=== PATIENT | female | born 2005 | race Hispanic/Latino ===

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

== ENCOUNTER 2023-05-02 17:25 | Emergency (ER) | payer OTHER ==
[2023-05-02] MEDS ORDERED: NALOXONE 0.4 MG/ML VIAL ONE (17:44)
--- NOTE | 2023-05-02 17:55 | EDPHYS ---
Physician Documentation [facility] Name: Hellen Joyner Age: 17 yrs Sex: Female : 2005 Arrival Date: 05/02/2023 Time: 17:25 Bed 4 Private MD: ED Physician Chad Henry HPI: 05/02 17:51 This 17 yrs old Female presents to ER via Wheelchair with complaints of kb Overdose. 17:51 The patient presents to the emergency department after a known overdose, a result of kb recreational substance abuse. Context: Method: the patient has a confirmed or suspected inhalation, percocet, Time: today, Extent: the OD/poisoning occurred at at home, and was witnessed no one. Associated signs and symptoms: Pertinent positives: decreased level of consciousness, Pertinent negatives: depression. Severity of symptoms: At their worst the symptoms were moderate in the emergency department the symptoms are unchanged. The patient has not experienced similar symptoms in the past. The patient has not recently seen a physician. Family reports pt was found to be unconscious at home so they carried her to the car and brought her in. Pt now responsive to voice and answers questions appropriately. Pt states she crushes and inhales percocet recreationally on a daily basis. States she took one pill today. . Historical: - Allergies: 17:33 No Known Allergies; ss - Home Meds: 17:33 None [Active]; ss - PMHx: 17:33 None; ss - PSHx: 17:33 None; ss - Immunization history:: Adult Immunizations unknown. - Social history:: Smoking status: unknown Patient uses street drugs. ROS: 17:40 Constitutional: Negative for fever, chills, and weight loss. kb 17:40 Neuro: Positive for altered mental status. 17:40 All other systems are negative. Exam: 17:40 Constitutional: This is a well developed, well nourished patient who is awake, alert, kb and in no acute distress. Head/Face: Normocephalic, atraumatic. ENT: Moist Mucous membranes Cardiovascular: Regular rate and rhythm with a normal S1 and S2. No gallops, murmurs, or rubs. No pulse deficits. Respiratory: Respirations even and unlabored. No increased work of breathing. Talking in full sentences Abdomen/GI: Soft, non-tender. No distention Skin: Warm, dry with normal turgor. Normal color. MS/ Extremity: Pulses equal, no cyanosis. Neurovascular intact. Full, normal range of motion. 17:40 Neuro: Orientation: to person, place, time \T\ situation. Mentation: responsive to voice able to follow commands, Motor: able to transfer from wheelchair to stretcher, Pt drowsy, responsive to voice and answers questions appropriately. Vital Signs: 17:31 BP 101 / 59; Pulse 73; Resp 10; Temp 97.6(TE); Pulse Ox 98% on R/A; Pain 0/10; ss 17:49 BP 97 / 62; Pulse 76; Resp 14; Pulse Ox 100% ; jl7 17:31 Pain Scale: Adult ss MDM: 17:31 Patient medically screened. kb 17:48 Differential diagnosis: Ingestion/exposure to percocet over medication. Data reviewed: kb vital signs, nurses notes. Historians other than the Patient: Family Member: aunt. ED course: Pt awake, alert and oriented after narcan, no longer drowsy. Pt educated on need for 6 hour observation. Pt states she is not staying here, states she is fine and doesn't like hospitals so she wants to leave. Pt and family educated on risks. Educated on half life of recreational drugs vs narcan and possibility of resp depression and . Pt still wants to go home. Pt ambulated out of ED via steady gait. . 0812 17:34 Order name: Acetaminophen; Complete Time: 18:21 kb 0812 17:34 Order name: Basic Metabolic Panel; Complete Time: 18:21 kb 12 17:34 Order name: CBC with Diff; Complete Time: 18:04 kb 12 17:34 Order name: ETOH Level; Complete Time: 18:11 kb 12 17:34 Order name: Hepatic Function; Complete Time: 18:21 kb 12 17:34 Order name: PT-INR; Complete Time: 17:59 kb 12 17:34 Order name: Ptt, Activated; Complete Time: 17:59 kb 12 17:34 Order name: Salicylate; Complete Time: 18:16 kb 0812 17:34 Order name: EKG; Complete Time: 17:34 kb 05/02 17:34 Order name: IV Saline Lock; Complete Time: 17:38 kb 0812 17:34 Order name: Labs collected and sent; Complete Time: 17:38 kb Administered Medications: 17:38 Drug: Naloxone IVP 0.4 mg Route: IVP; Site: right antecubital; bp 17:50 Follow up: Response: No adverse reaction; Marked relief of symptoms jl7 18:26 Not Given (Patient Refused): NS 0.9% IV 1000 ml IV at 1000 ml once jl7 Disposition: 05/03 07:53 Co-signature as Attending Physician, Chad Henry MD I agree with the assessment and kdr plan of care. Disposition Summary: 05/02/23 17:55 Discharge Ordered Location: Home kb Condition: Stable kb Diagnosis - Poisoning by other drugs, medicaments and biological substances, accidental kb (unintentional) Followup: kb - With: Emergency Department - When: As needed - Reason: Worsening of condition Followup: kb - With: Private Physician - When: 2 - 3 days - Reason: Recheck today's complaints, Continuance of care, Re-evaluation by your physician Forms: - Medication Reconciliation Form kb - Thank You Letter kb - Antibiotic Education kb - Prescription Opioid Use kb - Patient Portal Instructions kb - Leadership Thank You Letter kb Signatures: Dispatcher [employer] EDMS Nikki Elliott, INSURANCE BILLER-C INSURANCE BILLER-Vitalyb Chad Henry MD MD [facility] Nilda Ugalde, RN RN ss Ferny Pino, RN RN jl7 Hector Roque, RN RN bp Corrections: (The following items were deleted from the chart) 05/02 17:48 17:40 Neuro: Orientation: to person, place, time \T\ situation. Mentation: responsive to kb voice able to follow commands, Pt drowsy, responsive to voice and answers questions appropriately, kb
--- NOTE | 2023-05-02 17:55 | ER ---
Nurse's Notes [facility] Name: Hellen Joyner Age: 17 yrs Sex: Female : 2005 Arrival Date: 05/02/2023 Time: 17:25 Bed 4 Private MD: Diagnosis: Poisoning by other drugs, medicaments and biological substances, accidental (unintentional) Presentation: 05/02 17:31 Chief complaint: Grandmother states that patient has been using unknown recreational ss drugs for sometime and today she has been lethargic and minimally responsive for most of the day. Pt admits to taking 1 dose of oral Percocet. Coronavirus screen: Client denies travel out of the [place] in the last 14 days. Ebola Screen: Patient denies exposure to infectious person. Patient denies travel to an Ebola-affected area in the 21 days before illness onset. Initial Sepsis Screen: Does the patient meet any 2 criteria? No. Patient's initial sepsis screen is negative. Does the patient have a suspected source of infection? No. Patient's initial sepsis screen is negative. Risk Assessment: Do you want to hurt yourself or someone else? Patient reports no desire to harm self or others. Onset of symptoms was May 02, 2023. 17:31 Method Of Arrival: Wheelchair ss 17:31 Acuity: JANIE 2 ss Historical: - Allergies: 17:33 No Known Allergies; ss - Home Meds: 17:33 None [Active]; ss - PMHx: 17:33 None; ss - PSHx: 17:33 None; ss - Immunization history:: Adult Immunizations unknown. - Social history:: Smoking status: unknown Patient uses street drugs. Assessment: 17:34 Reassessment: Pt admits to taking the drugs recreationally. Denies SI/HI. ss 17:40 Reassessment: Pt laying in bed, lethargic with mouth open, skin appears pale, jl7 respirations shallow, even and unlabored, RR 10. 17:50 Reassessment: 0.4mg Narcan IVP administered as ordered. Pt now A\\T\\Ox4, request IV to be jl7 removed and she wants to leave. Pt's friends at bedside telling pt to stay and get help. Pt denies and request to leave. IV removed, pt ambulated out of ER with steady gate. Overdose: 18:29 [place] Suicide Severity Screening: "In the past month, have you wished you were jl7 or wished you could go to sleep and not wake up?" Patient responds "no." "In the past month, have you actually had any thoughts of killing yourself?" Patient responds "no." "In your lifetime, have you ever done anything, started to do anything, or prepared to do anything to end your life?" Patient responds "no.". Vital Signs: 17:31 BP 101 / 59; Pulse 73; Resp 10; Temp 97.6(TE); Pulse Ox 98% on R/A; Pain 0/10; ss 17:49 BP 97 / 62; Pulse 76; Resp 14; Pulse Ox 100% ; jl7 17:31 Pain Scale: Adult ss ED Course: 17:31 Patient arrived in ED. ss 17:31 Hector Roque, JOSE is Primary Nurse. bp 17:31 Nikki Elliott FNP-C is PHCP. kb 17:31 Chad Henry MD is Attending Physician. kb 17:33 Triage completed. ss 17:33 Arm band placed on right wrist. ss 17:39 Inserted saline lock: 20 gauge in right antecubital area, using aseptic technique. bp Blood collected. 17:50 Patient has correct armband on for positive identification. Provided Education on: jl7 Educated pt on dangers of continued drug use, informed of possibility of accidental OD and , pt verbalized understanding. 17:50 No provider procedures requiring assistance completed. IV discontinued, intact, jl7 bleeding controlled, No redness/swelling at site. Pressure dressing applied. Administered Medications: 17:38 Drug: Naloxone IVP 0.4 mg Route: IVP; Site: right antecubital; bp 17:50 Follow up: Response: No adverse reaction; Marked relief of symptoms jl7 18:26 Not Given (Patient Refused): NS 0.9% IV 1000 ml IV at 1000 ml once jl7 Medication: 17:49 VIS not applicable for this client. jl7 Outcome: 17:55 Discharge ordered by . kb 17:55 Discharged to home ambulatory, with friend. jl7 17:55 Condition: stable 17:55 Discharge instructions given to patient, friend, Instructed on follow up and referral plans. safety practices. 18:30 Patient left the ED. jl7 Signatures: Nikki Elliott, SALESPERSON RECREATIONAL [employer]HICLES-C SALESPERSON RECREATIONAL [employer]HICLES-Nilda Mcmillan, RN RN ss Ferny Pino, RN RN jl7 Hector Roque, RN RN bp
[2023-05-02 17:58] LABS: Protime INR 1.02
[2023-05-02 18:01] LABS: Absolute Lymphocytes (CBC) 1.7 K/uL (0.7-4.9); Hematocrit 34.5 % (36.0-45.0); Platelets 243 thou/uL (152-406); RBC Red Blood Cell Count 4.16 M/uL (3.86-4.86)
[2023-05-02 18:16] LABS: ALT/SGPT 15 U/L (13-56); AST/SGOT 13 U/L (15-37); Alkaline Phosphatase 88 U/L (45-117); BUN Blood Urea Nitrogen 7 mg/dL (7-18); Bicarbonate 29 mEq/L (21-32); Bilirubin Direct < 0.1 mg/dL (0-0.2); Bilirubin Indirect, Calculated ND mg/dL (0.2-0.8); Bilirubin Total 0.2 mg/dL (0.2-1.0); Glomerular Filtration Rate 129 ml/min (=/>90); Glucose Level 95 mg/dL (74-106); Potassium 3.8 mEq/L (3.5-5.1); Protein, Total 7.6 g/dL (6.4-8.2); Sodium Level 137 mEq/L (136-145)
[2023-05-02 19:09] VITALS: TEMP 97.6
[2023-05-02 19:10] VITALS: BP 97/62; O2SAT 100
== END 2023-05-02 18:30 | disposition home or self-care (01) ==
LOC: ER 17:25
DX: T40.2X1A Poisoning by other opioids, accidental (unintentional), initial encounter (principal)
CPT/HCPCS: 85025; 80048; 36415; 85610; 80076; 85730; 96374; 99284; 80143; 80179; 82077; J2310

== ENCOUNTER 2023-05-16 09:02 | Emergency (ER) | payer OTHER ==
[2023-05-16 09:23] LABS: Absolute Lymphocytes (CBC) 2.2 K/uL (0.7-4.9); Hematocrit 34.5 % (36.0-45.0); Lymphocytes % 23.2 % (15.3-44.8); MCV 80.9 fL (80-100); MPV 8.6 fL (7.6-11.3); Platelets 366 thou/uL (152-406); RBC Red Blood Cell Count 4.27 M/uL (3.86-4.86)
[2023-05-16] MEDS ORDERED: PROMETHAZINE INJ 25 MG/ML AMP ONE (09:23)
[2023-05-16] MEDS ORDERED: KETOROLAC 30 MG/ML INJ ONE (09:24)
[2023-05-16] MEDS ORDERED: NA CHLORIDE 0.9% 1,000 ML ONE ×2 (09:24→11:45)
[2023-05-16 09:34] LABS: Specific Gravity > 1.030 (1.005-1.030)
[2023-05-16] MEDS ORDERED: FAMOTIDINE 20 MG/2 ML VIAL IV ONE (09:36)
[2023-05-16 09:44] LABS: Specific Gravity > 1.030 (1.005-1.030); Urine Bacteria None Seen /HPF (<20); Urine Bilirubin NEGATIVE (Negative); Urine Blood Negative (Negative); Urine Clarity Extremely Turbid (Clear); Urine Color Yellow (Yellow); Urine Glucose NEGATIVE (Negative); Urine Mucus 1+ /HPF (None Seen); Urine Protein 1+ (Negative); Urine RBC <5 /HPF (None Seen); Urine Urobilinogen Normal (Normal); Urine pH 6.5 (5.0-7.0)
[2023-05-16 10:01] LABS: Barbiturates NEGATIVE (NEGATIVE); Benzodiazepines POSITIVE (NEGATIVE); Cocaine NEGATIVE (NEGATIVE); METHAMPHETAM NEGATIVE (NEGATIVE); Methadone NEGATIVE (NEGATIVE); Opiates NEGATIVE (NEGATIVE); Phencyclidine NEGATIVE (NEGATIVE); THC Cannibis POSITIVE (NEGATIVE)
[2023-05-16 10:30] LABS: Albumin 4.5 g/dL (3.4-5.0); Bilirubin Total 0.4 mg/dL (0.2-1.0); Potassium 2.9 mEq/L (3.5-5.1); Protein, Total 8.3 g/dL (6.4-8.2)
--- NOTE | 2023-05-16 10:40 | RAD REPORT ---
EXAM DESCRIPTION: RAD - Chest Single View - 05/16/2023 10:27 am CLINICAL HISTORY: CHEST PAIN COMPARISON: Chest Single View dated 11/11/2022; Chest Single View dated 06/30/2021; ABDOMEN 1 VIEW KU B dated 10/01/2015; CHEST PA AND LAT 2 VIEW dated 12/09/2014 FINDINGS: Lines: None. Lungs: No evidence of edema or pneumonia. Pleural: No significant pleural effusions or pneumothorax. Cardiac: The heart size is within normal limits. Mediastinum: Within normal limits. Bones: No acute fractures. Other: None IMPRESSION: No acute cardiopulmonary disease.
[2023-05-16] MEDS ORDERED: ONDANSETRON 4 MG/2 ML VIAL ONE (11:44)
[2023-05-16] MEDS ORDERED: NS KCL 20MEQ 1,000 ML IV ONE (11:45)
[2023-05-16] MEDS ORDERED: KCL 20 MEQ/100 mL IVPB 0 ML IV ONE (11:45)
[2023-05-16] MEDS ORDERED: POTASSIUM 25 MEQ EFFERV TAB ONE (13:42)
--- NOTE | 2023-05-16 14:56 | ER ---
Nurse's Notes [facility] Name: Hellen Joyner Age: 17 yrs Sex: Female : 2005 Arrival Date: 05/16/2023 Time: 09:02 Bed 7 Private MD: Diagnosis: Other psychoactive substance abuse;Nausea with vomiting, unspecified;Chest pain, unspecified;Abdominal pain, unspecified;Hypokalemia Presentation: 05/16 09:04 Chief complaint: EMS states: Chest pain since this morning, N/V X 5 days, Fentanyl ld1 abuse. Coronavirus screen: At this time, the client does not indicate any symptoms associated with coronavirus-19. Ebola Screen: No symptoms or risks identified at this time. Initial Sepsis Screen: Does the patient meet any 2 criteria? No. Patient's initial sepsis screen is negative. Does the patient have a suspected source of infection? No. Patient's initial sepsis screen is negative. Risk Assessment: Do you want to hurt yourself or someone else? Patient reports no desire to harm self or others. Onset of symptoms was May 16, 2023. 09:04 Method Of Arrival: EMS: [facility] ld1 09:04 Acuity: JANIE 3 ld1 Triage Assessment: 09:05 General: Appears in no apparent distress. comfortable, Behavior is calm, cooperative, ld1 appropriate for age. Pain: Complains of pain in chest Pain does not radiate. Pain currently is 6 out of 10 on a pain scale. Quality of pain is described as throbbing, Pain began 2 hours ago. Is intermittent. EENT: No signs and/or symptoms were reported regarding the EENT system. Neuro: Level of Consciousness is awake, alert, obeys commands, Oriented to person, place, time, situation. Cardiovascular: Capillary refill < 3 seconds Patient's skin is warm and dry. Rhythm is sinus rhythm. Respiratory: Airway is patent Respiratory effort is even, unlabored. GI: Abdomen is flat, non-distended. : No signs and/or symptoms were reported regarding the genitourinary system. Derm: No signs and/or symptoms reported regarding the dermatologic system. Musculoskeletal: No signs and/or symptoms reported regarding the musculoskeletal system. Historical: - Allergies: 09:05 No Known Allergies; ld1 - Home Meds: 09:05 None [Active]; ld1 - PMHx: 09:05 None; ld1 - PSHx: 09:05 None; ld1 - Immunization history:: Adult Immunizations up to date. - Social history:: Smoking status: Patient denies any tobacco usage or history of. Patient uses street drugs, fentanyl. Screenin:[address] [facility] ED Fall Risk Assessment (Adult) History of falling in the last 3 months, ld1 including since admission No falls in past 3 months (0 pts). Abuse screen: Denies threats or abuse. Denies injuries from another. Nutritional screening: No deficits noted. Tuberculosis screening: No symptoms or risk factors identified. Assessment: 09:06 Reassessment: See triage assessment. ld1 10:27 Reassessment: Patient appears in no apparent distress at this time. Patient and/or hb family updated on plan of care and expected duration. Pain level reassessed. Patient is alert, oriented x 3, equal unlabored respirations, skin warm/dry/pink. 11:30 Reassessment: Patient appears in no apparent distress at this time. Patient and/or hb family updated on plan of care and expected duration. Pain level reassessed. Patient is alert, oriented x 3, equal unlabored respirations, skin warm/dry/pink. 12:30 Reassessment: Patient appears in no apparent distress at this time. Patient and/or hb family updated on plan of care and expected duration. Pain level reassessed. Patient is alert, oriented x 3, equal unlabored respirations, skin warm/dry/pink. Reassessment: Patient appears in no apparent distress at this time. Patient and/or family updated on plan of care and expected duration. Pain level reassessed. Patient is alert, oriented x 3, equal unlabored respirations, skin warm/dry/pink. 14:00 Reassessment: Patient appears in no apparent distress at this time. Patient and/or hb family updated on plan of care and expected duration. Pain level reassessed. Patient is alert, oriented x 3, equal unlabored respirations, skin warm/dry/pink. Overdose: 15:19 [place] Suicide Severity Screening: "In the past month, have you wished you were ld1 or wished you could go to sleep and not wake up?" Patient responds "no." "In the past month, have you actually had any thoughts of killing yourself?" Patient responds "no." "In your lifetime, have you ever done anything, started to do anything, or prepared to do anything to end your life?" Patient responds "no.". Vital Signs: 09:04 BP 147 / 81; Pulse 56; Resp 18; Temp 98.5(O); Pulse Ox 100% on R/A; Weight 70.31 kg; ld1 Height 5 ft. 4 in. ; Pain 6/10; 11:31 BP 138 / 80; Pulse 64; Resp 15; Pulse Ox 99% on R/A; hb 12:21 BP 137 / 86; Pulse 63; Resp 18; Pulse Ox 100% on R/A; ld1 14:00 BP 128 / 82; Pulse 66; Resp 16; Pulse Ox 99% on R/A; hb 09:04 Body Mass Index 26.61 (70.31 kg, 162.56 cm) ld1 09:04 Pain Scale: Adult ld1 ED Course: 09:04 Patient arrived in ED. ld1 09:05 Triage completed. ld1 09:05 Arm band placed on right wrist. ld1 09:06 Leo Jacques MD is Attending Physician. cp 09:06 Leo Jimenez PA is PHCP. cp 09:06 Patient has correct armband on for positive identification. Placed in gown. Bed in low ld1 position. Call light in reach. Side rails up X2. aquatics instructor on. Pulse ox on. NIBP on. Door closed. Noise minimized. Warm blanket given. 09:06 No provider procedures requiring assistance completed. ld1 09:09 Yamilet Calle, RN is Primary Nurse. ld1 09:20 CBC with Diff Sent. mm9 09:20 CMP Sent. mm9 09:20 Lipase Sent. mm9 09:20 Test, Urine Sent. mm9 09:20 Urinalysis w/ reflexes Sent. mm9 09:21 Initial lab(s) drawn, by me, sent to lab. Urine collected: clean catch specimen, clear. mm9 Inserted saline lock: 20 gauge in right antecubital area, using aseptic technique. 09:25 CBC with Diff Sent. ll1 09:25 CMP Sent. ll1 09:25 Lipase Sent. ll1 09:36 COVID-19 SARS RT PCR Sent. hb 10:29 XRAY Chest (1 view) In Process Unspecified. EDMS 15:19 IV discontinued, intact, bleeding controlled, No redness/swelling at site. ld1 Administered Medications: 09:16 Drug: NS 0.9% IV 1000 ml Route: IV; Rate: 1 bolus; Site: right antecubital; hb 11:30 Follow up: Response: No adverse reaction; IV Status: Completed infusion; IV Intake: hb 1000ml 09:16 Drug: Promethazine IVP 25 mg Route: IVP; Site: right antecubital; hb 11:30 Follow up: Response: No adverse reaction hb 09:16 Drug: Ketorolac IVP 15 mg Route: IVP; Site: right antecubital; hb 11:30 Follow up: Response: No adverse reaction hb 09:30 Drug: Famotidine IVP 20 mg Route: IVP; Site: right antecubital; hb 11:30 Follow up: Response: No adverse reaction hb 11:39 Not Given (Physician Discretion): Potassium PO Effervescent Tablet 50 mEq PO once; hb dissolve in 4 ounces of water or juice 11:39 Drug: Potassium Chloride IV 20 mEq Route: IV; Rate: calculated rate; Site: right hb antecubital; 11:39 Drug: NS 0.9% IV 1000 ml Route: IV; Rate: 500 ml/hr; Site: right antecubital; hb 11:40 Drug: Ondansetron IVP 4 mg Route: IVP; Site: right antecubital; hb 13:34 Drug: Potassium PO Effervescent Tablet 50 mEq Route: PO; ld1 Medication: 09:06 VIS not applicable for this client. ld1 Intake: 11:30 IV: 1000ml; Total: 1000ml. hb Outcome: 14:55 Discharge ordered by . madelin 15:18 Discharged to home ambulatory. ld1 15:18 Condition: stable 15:18 Discharge instructions given to patient, Instructed on discharge instructions, follow up and referral plans. Demonstrated understanding of instructions, follow-up care. 15:19 Patient left the ED. ld1 Signatures: Dispatcher [employer] EDMS Leo Jimenez PA PA cp Baxter, Heather RN Kevin Cordoba RN RN ll1 Yamilet Calle RN RN ld1 Magali Tracey mm9 Corrections: (The following items were deleted from the chart) 09:25 09:20 Troponin High Sensitivity+C.LAB.BRZ drawn and sent. 9 EDMS : 09:23 URINE DRUG SCREEN+UC.LAB.BRZ drawn and sent. 9 EDMS : 09:23 Troponin High Sensitivity+C.LAB.BRZ drawn and sent. 9 EDMS 09:36 09:24 TEST, SERUM+SC.LAB.BRZ drawn and sent. 1 EDMS 11:32 11:30 Potassium PO Effervescent Tablet 50 mEq PO hb ll1
--- NOTE | 2023-05-16 14:56 | EDPHYS ---
[facility] Name: Hellen Joyner Age: 17 yrs Sex: Female : 2005 Arrival Date: 05/16/2023 Time: 09:02 Bed 7 Private MD: ED Physician Leo Jacques HPI: 05/16 09:10 This 17 yrs old Female presents to ER via EMS with complaints of Drug Abuse, cp Chest Pain, Nausea/Vomiting. 09:10 The patient presents to the emergency department with nausea, that is moderate, cp vomiting, that is intermittent. Onset: The symptoms/episode began/occurred 5 day(s) ago. Possible causes: reports taking "street Fentanyl". 09:10 Associated signs and symptoms: Pertinent positives: chest pain that started today, cp Pertinent negatives: constipation, diarrhea, fever, GI bleeding. Historical: - Allergies: 09:05 No Known Allergies; ld1 - Home Meds: 09:05 None [Active]; ld1 - PMHx: 09:05 None; ld1 - PSHx: 09:05 None; ld1 - Immunization history:: Adult Immunizations up to date. - Social history:: Smoking status: Patient denies any tobacco usage or history of. Patient uses street drugs, fentanyl. ROS: 09:15 Constitutional: Negative for body aches, chills, fever. cp 09:15 Eyes: Negative for injury, pain, redness, and discharge. cp 09:15 ENT: Negative for drainage from ear(s), ear pain, sore throat, difficulty swallowing, difficulty handling secretions. 09:15 Cardiovascular: Positive for chest pain, Negative for palpitations. 09:15 Respiratory: Negative for cough, shortness of breath, wheezing. 09:15 Abdomen/GI: Positive for abdominal pain, nausea and vomiting, Negative for diarrhea, constipation. 09:15 : Negative for urinary symptoms, vaginal bleeding. 09:15 Neuro: Negative for altered mental status, dizziness, headache, weakness. 09:15 All other systems are negative. Exam: 09:20 Constitutional: The patient appears in no acute distress, alert, awake, cp non-diaphoretic, non-toxic, well developed, well nourished, uncomfortable. 09:20 Head/Face: Normocephalic, atraumatic. cp 09:20 Eyes: Periorbital structures: appear normal, Conjunctiva: normal, no exudate, no injection, Sclera: no appreciated abnormality, Lids and lashes: appear normal. 09:20 ENT: External ear(s): are unremarkable, Nose: is normal, Mouth: Lips: moist, Oral mucosa: pink and intact, moist, Posterior pharynx: is normal, airway is patent, no erythema, no exudate. 09:20 Chest/axilla: Inspection: normal. 09:20 Cardiovascular: Rate: bradycardic, Rhythm: regular, Edema: is not appreciated, JVD: is not appreciated. 09:20 Respiratory: the patient does not display signs of respiratory distress, Respirations: normal, no use of accessory muscles, no retractions, labored breathing, is not present, Breath sounds: are clear throughout, no decreased breath sounds, no stridor, no wheezing. 09:20 Abdomen/GI: Inspection: abdomen appears normal, Bowel sounds: active, all quadrants, Palpation: soft, in all quadrants, moderate abdominal tenderness, in the right upper quadrant and left upper quadrant, rebound tenderness, is not appreciated. 09:20 Back: CVA tenderness, is absent. 09:25 ECG was reviewed by the Attending Physician. cp Vital Signs: 09:04 BP 147 / 81; Pulse 56; Resp 18; Temp 98.5(O); Pulse Ox 100% on R/A; Weight 70.31 kg; ld1 Height 5 ft. 4 in. ; Pain 6/10; 11:31 BP 138 / 80; Pulse 64; Resp 15; Pulse Ox 99% on R/A; hb 12:21 BP 137 / 86; Pulse 63; Resp 18; Pulse Ox 100% on R/A; ld1 14:00 BP 128 / 82; Pulse 66; Resp 16; Pulse Ox 99% on R/A; hb 09:04 Body Mass Index 26.61 (70.31 kg, 162.56 cm) ld1 09:04 Pain Scale: Adult ld1 MDM: 09:06 Patient medically screened. cp 09:26 Differential diagnosis: acute myocardial infarction, anxiety, cholecystitis, cp Cholelithiasis Nonspecific abd pain, gastritis, cholecystitis, pancreatitis, appendicitis, viral gastroenteritis, gastroenteritis, pericarditis, pneumonia, pneumothorax, pulmonary embolus. 14:55 Data reviewed: vital signs, nurses notes, lab test result(s), EKG, radiologic studies, cp CT scan, plain films. 14:55 I considered the following discharge prescriptions or medication management in the emergency department Medications were administered in the Emergency Department. See MAR. Independent interpretation of the following test(s) in the Emergency Department EKG: See my EKG interpretation above. Counseling: I had a detailed discussion with the patient and/or guardian regarding the historical points, exam findings, and any diagnostic results supporting the discharge/admit diagnosis, lab results, radiology results, to return to the emergency department if symptoms worsen or persist or if there are any questions or concerns that arise at home. Response to treatment: the patient's symptoms have markedly improved after treatment, and as a result, I will discharge patient. ED course: VSS. Vomiting resolved. Patient tolerating po fluids. Will discharge to home for continued monitoring. 05/16 09:08 Order name: CBC with Diff; Complete Time: 11: 05/16 11:01 Interpretation: Normal except: HGB 11.7; HCT 34.5; RDW 15.9. 05/16 09:08 Order name: CMP; Complete Time: 11: 05/16 11:01 Interpretation: Normal except: K 2.9; GLUC 115; AST 6; TP 8.3; GLOB 3.8. 05/16 09:08 Order name: Lipase; Complete Time: 11: 05/16 09:08 Order name: Test, Urine; Complete Time: 11: 05/16 09:08 Order name: Urinalysis w/ reflexes; Complete Time: 11: 05/16 11:21 Interpretation: Normal except: [facility] Extremely Turbid; Urine SG > 1.030; UKET TRACE; cp UPROT 1+. 05/16 09:08 Order name: Troponin High Sensitivity; Complete Time: 11:01 05/16 09:08 Order name: UDS; Complete Time: 11: 05/16 09:27 Order name: COVID-19 SARS RT PCR; Complete Time: 11: 05/16 09:27 Order name: XRAY Chest (1 view); Complete Time: 11:01 05/16 09:08 Order name: EKG; Complete Time: 09:09 05/16 09:08 Order name: IV Saline Lock; Complete Time: 09:20 05/16 09:08 Order name: Labs collected and sent; Complete Time: : cp 05/16 09:08 Order name: EKG - Nurse/Tech; Complete Time: : cp EC: Rate is 61 beats/min. Rhythm is regular. NC interval is normal. QRS interval is normal. cp QT interval is normal. T waves are Inverted in lead aVR. Interpreted by me. Reviewed by me. Administered Medications: 09:16 Drug: NS 0.9% IV 1000 ml Route: IV; Rate: 1 bolus; Site: right antecubital; hb 11:30 Follow up: Response: No adverse reaction; IV Status: Completed infusion; IV Intake: hb 1000ml 09:16 Drug: Promethazine IVP 25 mg Route: IVP; Site: right antecubital; hb 11:30 Follow up: Response: No adverse reaction hb 09:16 Drug: Ketorolac IVP 15 mg Route: IVP; Site: right antecubital; hb 11:30 Follow up: Response: No adverse reaction hb 09:30 Drug: Famotidine IVP 20 mg Route: IVP; Site: right antecubital; hb 11:30 Follow up: Response: No adverse reaction hb 11:39 Not Given (Physician Discretion): Potassium PO Effervescent Tablet 50 mEq PO once; hb dissolve in 4 ounces of water or juice 11:39 Drug: Potassium Chloride IV 20 mEq Route: IV; Rate: calculated rate; Site: right hb antecubital; 11:39 Drug: NS 0.9% IV 1000 ml Route: IV; Rate: 500 ml/hr; Site: right antecubital; hb 11:40 Drug: Ondansetron IVP 4 mg Route: IVP; Site: right antecubital; hb 13:34 Drug: Potassium PO Effervescent Tablet 50 mEq Route: PO; ld1 Disposition Summary: 05/16/23 14:55 Discharge Ordered Location: Home cp Problem: new cp Symptoms: have improved cp Condition: Stable cp Diagnosis - Other psychoactive substance abuse cp - Nausea with vomiting, unspecified cp - Chest pain, unspecified cp - Abdominal pain, unspecified cp - Hypokalemia cp Followup: cp - With: Private Physician - When: 2 - 3 days - Reason: Recheck today's complaints Discharge Instructions: - Discharge Summary Sheet cp - Abdominal Pain, Adult cp - Nonspecific Chest Pain, Adult cp - Potassium Content of Foods cp - Nausea and Vomiting, Adult cp - Hypokalemia cp Forms: - Medication Reconciliation Form cp - Thank You Letter cp - Antibiotic Education cp - Prescription Opioid Use cp - Patient Portal Instructions cp - Leadership Thank You Letter cp Prescriptions: - Zofran 4 mg Oral Tablet - take 1 tablet by ORAL route every 12 hours As needed; 20 tablet; Refills: 0, cp Product Selection Permitted - Potassium Chloride 10 mEq Oral capsule, extended release - take 2 tablet by ORAL route once daily for 3 days; 6 tablet; Refills: 0, cp Product Selection Permitted Signatures: Dispatcher [employer] EDMS Leo Jimenez PA PA cp Sara Doan RN RN Kevin Barron RN RN ll1 Yamilet Calle RN RN ld1 Corrections: (The following items were deleted from the chart) 09:25 09:09 Troponin High Sensitivity+C.LAB.BRZ ordered. EDMS EDMS 09:25 09:09 URINE DRUG SCREEN+UC.LAB.BRZ ordered. EDMS EDMS 09:36 09:23 TEST, SERUM+SC.LAB.BRZ ordered. EDMS EDMS 09:39 09:26 URINE DRUG SCREEN+UC.LAB.BRZ ordered. EDMS EDMS 10:19 09:26 Troponin High Sensitivity+C.LAB.BRZ ordered. EDMS EDMS
[2023-05-16 15:33] VITALS: TEMP 98.5
[2023-05-16 15:38] VITALS: BP 128/82; O2SAT 99
--- NOTE | 2023-05-17 15:07 | EKG ---
Test Date: 2023-05-16 Test Time: 09:17:13 Boring Machine Feeder: Judi RODRIGUEZ MEASUREMENT RESULTS: Intervals: Rate: 61 KS: 120 QRSD: 92 QT: 450 QTc: 453 Crivitz: P: 42 KS: 120 QRS: 91 T: 65 INTERPRETIVE STATEMENTS: Normal sinus rhythm Rightward axis Borderline ECG Compared to ECG 11/11/2022 18:13:44 Right-axis deviation now present Electronically Signed On 05-17-23 15:05:19 CDT by Atif Blanton
== END 2023-05-16 15:19 | disposition home or self-care (01) ==
LOC: ER 09:02
DX: F19.10 Other psychoactive substance abuse, uncomplicated (principal); E87.6 Hypokalemia; R11.2 Nausea with vomiting, unspecified; R10.9 Unspecified abdominal pain; Z20.822 Contact with and (suspected) exposure to COVID-19
CPT/HCPCS: 96361; 93005; 85025; 81001; 36415; 81025; 84484; 83690; 80053; 87635; 80307; 71045; 96375; 96374; 99285; J2550; J2405; J7030 ×2; J3480

== ENCOUNTER 2025-02-01 12:55 | Emergency (ER) | payer OTHER, SELFPAY ==
[2025-02-01] MEDS ORDERED: ONDANSETRON 4 MG/2 ML VIAL ONE (13:40)
[2025-02-01] MEDS ORDERED: KETOROLAC 30 MG/ML INJ ONE (13:40)
[2025-02-01] MEDS ORDERED: NA CHLORIDE 0.9% 1,000 ML ONE (13:41)
[2025-02-01 13:50] LABS: Absolute Basophils 0.1 K/uL (0-0.5); Absolute Lymphocytes (CBC) 1.1 K/uL (0.7-4.9); Absolute Monocytes 0.2 K/uL (0.1-1.3); Absolute Neutrophil 9.1 K/uL (1.8-8.0); Basophils % 0.8 % (0-1.3); Eosinophils % 0.1 % (0-4.4); Hematocrit 33.1 % (36.0-45.0); Lymphocytes % 10.1 % (15.3-44.8); MCH 27.4 pg (27.0-35.0); MCHC 33.2 g/dL (32.0-36.0); MCV 82.5 fL (80-100); MPV 9.2 fL (7.6-11.3); Monocytes % 2.2 % (3.3-12.3); Neutrophils % 86.8 % (41.7-73.7); Platelets 373 thou/uL (152-406); RBC Red Blood Cell Count 4.01 M/uL (3.86-4.86); Red Cell Distribution Width 17.4 % (12.1-15.2)
[2025-02-01 13:59] LABS: Specific Gravity 1.026 (1.005-1.030); Urine Bacteria <20 /HPF (<20); Urine Bilirubin NEGATIVE (Negative); Urine Blood Negative (Negative); Urine Clarity Extremely Turbid (Clear); Urine Color Light-Yellow (Yellow); Urine Culture Reflex Order NOT NEEDED; Urine Glucose NEGATIVE (Negative); Urine Ketones 1+ (Negative); Urine Microscopic Reflex YN ORDER UMIC; Urine Mucus 2+ /HPF (None Seen); Urine Nitrite NEGATIVE (Negative); Urine Protein TRACE (Negative); Urine RBC <5 /HPF (None Seen); Urine Urobilinogen Normal (Normal); Urine WBC <5 /HPF (<5); Urine WBC Clump Rare /HPF (None Seen); Urine Yeast (Budding) Trace /HPF (None Seen); Urine pH 7.5 (5.0-7.0)
[2025-02-01 14:09] LABS: ALT/SGPT 16 U/L (13-56); Albumin 3.9 g/dL (3.4-5.0); Alkaline Phosphatase 79 U/L (45-117); BUN Blood Urea Nitrogen 12 mg/dL (7-18); Bicarbonate 27 mEq/L (21-32); Bilirubin Total 0.3 mg/dL (0.2-1.0); Globulin 3.9 g/dL (2.3-3.5); Glomerular Filtration Rate 124 ml/min (=/>90); Glucose Level 111 mg/dL (74-106); Lipase 50 U/L (13-75); Protein, Total 7.8 g/dL (6.4-8.2); Sodium Level 140 mEq/L (136-145)
[2025-02-01 14:10] LABS: AST/SGOT < 10 U/L (15-37)
--- NOTE | 2025-02-01 17:14 | RAD REPORT ---
EXAMINATION: CT Abdomen Pelvis W Contrast CLINICAL INDICATION: Female, 19 years old. ABD PAIN TECHNIQUE: CT abdomen and pelvis was performed, after the administration of IV contrast, [facility]. Axial, sagittal and coronal reconstructions were obtained. One or more of the following dose reduction techniques were used: Automated exposure control, adjustment of the mA and k V according to patient size, and iterative reconstruction. Unless otherwise specified, incidental findings do not require dedicated imaging follow-up. COMPARISON: No prior exam. FINDINGS: LOWER CHEST: The visualized lung bases are clear. LIVER: Normal in size and contour. No focal lesion. BILIARY SYSTEM: No suspicious abnormalities. SPLEEN: Normal size. No focal lesion. PANCREAS: No mass, ductal dilation, or yashira-pancreatic fluid. 11/11/2022 ADRENALS: Normal; no mass. KIDNEYS: Normal size and contour. No hydronephrosis. URINARY BLADDER: Decompressed limiting evaluation. GASTROINTESTINAL TRACT: No evidence of free air, significant intra-abdominal free fluid, bowel obstru ction or abscess. APPENDIX: Normal appendix. LYMPH NODES: No lymphadenopathy. MUSCULOSKELETAL: No acute or suspicious osseous abnormality. ADDITIONAL FINDINGS: Dominant left adnexal cyst or follicle measuring 2.3 cm, likely physiologic.. IMPRESSION: No acute or concerning abnormalities seen in the abdomen or pelvis.
[2025-02-01] MEDS ORDERED: PROMETHAZINE INJ 25 MG/ML AMP IM ONE (17:27)
--- NOTE | 2025-02-01 18:12 | ER ---
Nurse's Notes [facility] Name: Hellen Joyner Age: 19 yrs Sex: Female : 2005 Arrival Date: 02/01/2025 Time: 12:55 Bed 11 Private MD: Diagnosis: Viral gastroenteritis Presentation: 02/01 13:04 Chief complaint: EMS states: toned out for fall in the bathroom, hit her head. unsure me1 of LOC. States she fell because she is weak from vomiting since yesterday morning. c/o abdominal pain 05/31, "squeezing". Coronavirus screen: Vaccine status: Patient reports being unvaccinated. Ebola Screen: No symptoms or risks identified at this time. Initial Sepsis Screen: Does the patient meet any 2 criteria? No. Patient's initial sepsis screen is negative. Does the patient have a suspected source of infection? No. Patient's initial sepsis screen is negative. Risk Assessment: Do you want to hurt yourself or someone else? Patient reports no desire to harm self or others. Onset of symptoms was January 31, 2025. 13:04 Method Of Arrival: EMS: [facility] in1 13:04 Acuity: JANIE 3 me1 13:15 Care prior to arrival: None. Mechanism of Injury: Fall. Trauma event details: Injury kj2 occurred: February 01, 2025. CONTACT PERSON: 13:08 LMP 01/19/2025, unknown me1 Historical: - Allergies: 13:08 No Known Allergies; me1 - Home Meds: 13:08 None [Active]; me1 - PMHx: 13:08 None; me1 - PSHx: 13:08 None; me1 - Immunization history:: Adult Immunizations up to date. - Infectious Disease History:: Denies. - Immunization history: Last tetanus immunization: unknown. - Social history:: Smoking status: Reported history of juuling and/or vaping. Screenin:15 [facility] ED Fall Risk Assessment (Adult) History of falling in the last 3 months, kj2 including since admission Yes- single mechanical fall (1 pt) Confusion or Disorientation No (0 pts) Intoxicated or Sedated No (0 pts) Impaired Gait No (0 pts) Mobility Assist Device Used No (0 pt) Altered Elimination No (0 pt) Score/Fall Risk Level 0 - 2 = Low Risk Maintained a safe environment, Hourly rounding (assess needs \\T\\ fall precautionary measures) done. Abuse screen: Denies threats or abuse. Denies injuries from another. Nutritional screening: No deficits noted. Tuberculosis screening: No symptoms or risk factors identified. Primary Survey: 15:10 NO uncontrolled hemorrhage observed. Breathing/Chest: Spontaneous respiratory effort, kj2 equal unlabored respirations, breath sounds clear bilaterally, regular pattern, symmetrical chest rise and fall. Respiratory effort: spontaneous, Breath sounds: clear, Respiratory pattern: regular, Chest inspection: symmetrical rise and fall of the chest. Circulation: No external hemorrhage present. Regular and strong central pulse, skin warm/dry/normal color. Hemorrhage: No external hemorrhage noted. Pulses: palpable . Disability Pupils are equal, round, reactive to light and accommodation. Exposure/Environment: All clothing and personal items were removed. Forensic evidence collection is not deemed to be indicated at this time. Items placed in patient belonging bag. A warming method has been applied: A warm blanket has been provided to the patient. Reassessment Alertness and Airway: Awake and alert. The airway is patent. Airway Patent Breathing: Spontaneous respiratory effort, equal unlabored respirations, breath sounds clear bilaterally, regular pattern with symmetrical chest rise and fall. Circulation: No external hemorrhage noted. Regular and strong central pulse, skin warm/dry/normal color. Disability: Pupils Pupils are equal, round, reactive to light and accomodation. Assessment: 13:15 General: Appears in no apparent distress. Behavior is cooperative. Pain: Complains of kj2 pain in abdomen Pain currently is 8 out of 10 on a pain scale. Neuro: Level of Consciousness is awake, alert, obeys commands, Oriented to person, place, time, situation. Cardiovascular: Patient's skin is warm and dry. Respiratory: Airway is patent Respiratory effort is unlabored. GI: Reports lower abdominal pain, nausea, vomiting. : No signs and/or symptoms were reported regarding the genitourinary system. 13:56 Reassessment: Patient appears in no apparent distress at this time. Patient and/or kj2 family updated on plan of care and expected duration. Pain level reassessed. Patient is alert, oriented x 3, equal unlabored respirations, skin warm/dry/pink. 15:05 Reassessment: Patient appears in no apparent distress at this time. Patient and/or kj2 family updated on plan of care and expected duration. Pain level reassessed. Patient is alert, oriented x 3, equal unlabored respirations, skin warm/dry/pink. 15:59 Reassessment: Patient appears in no apparent distress at this time. Patient and/or kj2 family updated on plan of care and expected duration. Pain level reassessed. Patient is alert, oriented x 3, equal unlabored respirations, skin warm/dry/pink. 17:34 Reassessment: Patient appears in no apparent distress at this time. Patient and/or kj2 family updated on plan of care and expected duration. Pain level reassessed. Patient is alert, oriented x 3, equal unlabored respirations, skin warm/dry/pink. 18:36 Reassessment: Patient appears in no apparent distress at this time. Patient and/or kj2 family updated on plan of care and expected duration. Pain level reassessed. Patient is alert, oriented x 3, equal unlabored respirations, skin warm/dry/pink. Vital Signs: 13:04 BP 102 / 51; Pulse 47; Resp 16; Temp 98.2; Pulse Ox 100% ; Weight 68.04 kg; Height 5 me1 ft. 9 in. ; Pain 9/10; 13:56 BP 109 / 64; Pulse 48; Resp 20; Temp 98.2; Pulse Ox 100% on R/A; kj2 15:05 BP 110 / 68; Pulse 50; Resp 20; Pulse Ox 98% on R/A; kj2 15:59 BP 117 / 80; Pulse 48; Resp 16; Pulse Ox 100% ; kj2 17:34 BP 117 / 80; Pulse 50; Resp 18; Pulse Ox 97% ; kj2 18:36 BP 121 / 78; Pulse 56; Resp 20; Temp 98; Pulse Ox 100% ; kj2 13:04 Body Mass Index 22.15 (68.04 kg, 175.26 cm) me1 13:04 Pain Scale: Adult me1 Len Coma Score: 15:10 Eye Response: spontaneous(4). Motor Response: obeys commands(6). Verbal Response: kj2 oriented(5). Total: 15. Trauma Score (Adult): 15:10 Eye Response: spontaneous(1); Verbal Response: oriented(1); Motor Response: obeys kj2 commands(2); Systolic BP: > 89 mm Hg(4); Respiratory Rate: 10 to 29 per min(4); Len Score: 15; Trauma Score: 12 ED Course: 13:03 Patient arrived in ED. me1 13:04 Jenny Gill [facility]C [facility] sb4 13:04 Richar Blanco MD is Attending Physician. sb4 13:08 Triage completed. me1 13:08 Arm band placed on Patient placed in an exam room. me1 13:15 Patient has correct armband on for positive identification. Bed in low position. Call kj2 light in reach. Provided Education on: call light. 13:24 Taisha Montana, RN is Primary Nurse. kj2 13:44 Inserted saline lock: 20 gauge in right antecubital area, using aseptic technique. kj2 Blood collected. Flushed with 10 mL NS. 15:14 CT Abd/Pelvis - IV Contrast Only In Process Unspecified. EDMS 18:37 No provider procedures requiring assistance completed. IV discontinued, intact, kj2 bleeding controlled, No redness/swelling at site. Pressure dressing applied. 18:37 Patient maintains SpO2 saturation greater than 95% on room air. kj2 18:38 Thermoregulation: warm blanket given to patient. kj2 Administered Medications: 13:53 Drug: Ondansetron IVP 4 mg IVP once; over 2 minutes Route: IVP; Site: right antecubital;kj2 18:35 Follow up: Response: No adverse reaction kj2 13:53 Drug: NS 0.9% IV 1000 ml IV at 1 bolus Per protocol; to be given as a bolus over 60 kj2 minutes Route: IV; Rate: 1 bolus; Site: right antecubital; 18:35 Follow up: IV Status: Completed infusion; IV Intake: 1000ml kj2 13:54 Drug: TORadol - Ketorolac IVP 15 mg IVP once Route: IVP; Site: right antecubital; kj2 18:36 Follow up: Response: No adverse reaction kj2 17:34 Drug: Promethazine IVP 12.5 mg IVP once Route: IVP; Site: right antecubital; kj2 18:35 Follow up: Response: No adverse reaction kj2 Medication: 18:36 VIS not applicable for this client. kj2 Intake: 18:35 IV: 1000ml; Total: 1000ml. kj2 18:37 PO: 240ml (Water); Total: 1240ml. kj2 Outcome: 18:12 Discharge ordered by . sb4 18:37 Discharged to home ambulatory, kj2 18:37 Condition: stable 18:37 Discharge instructions given to patient, Instructed on discharge instructions, follow up and referral plans. Demonstrated understanding of instructions, follow-up care, 18:37 Patient's length of stay was not longer than 2 hours. kj2 18:42 Patient left the ED. kj2 Signatures: Dispatcher [employer] Jenny Kessler, PA-C PA-C [id number] Sobeida Vuong, RN RN me1 Taisha Montana, RN RN kj2
--- NOTE | 2025-02-01 18:12 | EDPHYS ---
Physician Documentation [facility] Name: Hellen Joyner Age: 19 yrs Sex: Female : 2005 Arrival Date: 02/01/2025 Time: 12:55 Bed 11 Private MD: ED Physician Richar Blanco HPI: 02/01 13:24 This 19 yrs old Female presents to ER via EMS with complaints of Fall Injury, sb4 Nausea/Vomiting. 13:24 abd pain, n/v/d x 2 days. fell in the bathroom today because she was so weak. states sb4 she cannot hold anything down. no fever or chills. no melena or hematemesis. 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 - Infectious Disease History:: Denies. - Immunization history: Last tetanus immunization: unknown. - Social history:: Smoking status: Reported history of juuling and/or vaping. ROS: 13:24 Constitutional: Negative for fever, chills, and weight loss, sb4 13:24 Abdomen/GI: Positive for abdominal pain, nausea, vomiting, and diarrhea, 13:24 All other systems are negative, Exam: 13:24 Head/Face: Normocephalic, atraumatic. Eyes: Extra-ocular motions intact. Periorbital sb4 areas with no swelling, redness, or edema. Cardiovascular: Regular rate and rhythm with a normal S1 and S2. Respiratory: No increased work of breathing, no retractions or nasal flaring. Skin: Warm, dry with normal turgor. Normal color with no rashes, no lesions, and no evidence of cellulitis. 13:24 Constitutional: The patient appears alert, awake, restless, uncomfortable, 13:24 ENT: Mouth: Oral mucosa: dry, 13:24 Abdomen/GI: Palpation: soft, mild abdominal tenderness, in all quadrants, Vital Signs: 13:04 BP 102 / 51; Pulse 47; Resp 16; Temp 98.2; Pulse Ox 100% ; Weight 68.04 kg; Height 5 me1 ft. 9 in. ; Pain 9/10; 13:56 BP 109 / 64; Pulse 48; Resp 20; Temp 98.2; Pulse Ox 100% on R/A; kj2 15:05 BP 110 / 68; Pulse 50; Resp 20; Pulse Ox 98% on R/A; kj2 15:59 BP 117 / 80; Pulse 48; Resp 16; Pulse Ox 100% ; kj2 17:34 BP 117 / 80; Pulse 50; Resp 18; Pulse Ox 97% ; kj2 18:36 BP 121 / 78; Pulse 56; Resp 20; Temp 98; Pulse Ox 100% ; kj2 13:04 Body Mass Index 22.15 (68.04 kg, 175.26 cm) me1 13:04 Pain Scale: Adult me1 [place] Coma Score: 15:10 Eye Response: spontaneous(4). Motor Response: obeys commands(6). Verbal Response: kj2 oriented(5). Total: 15. Trauma Score (Adult): 15:10 Eye Response: spontaneous(1); Verbal Response: oriented(1); Motor Response: obeys kj2 commands(2); Systolic BP: > 89 mm Hg(4); Respiratory Rate: 10 to 29 per min(4); [place] Score: 15; Trauma Score: 12 MDM: 13:04 Medical Screening Exam initiated sb4 13:25 Differential diagnosis: viral gastroenteritis, gastritis, , appendicitis, sb4 cholecystitis, cholelithiasis. 18:12 Data reviewed: vital signs, nurses notes, EMS record, lab test result(s), radiologic sb4 studies, and as a result, I will discharge patient. Counseling: I had a detailed discussion with the patient and/or guardian regarding the historical points, exam findings, and any diagnostic results supporting the discharge/admit diagnosis, lab results, radiology results, the need for outpatient follow up, for definitive care, to return to the emergency department if symptoms worsen or persist or if there are any questions or concerns that arise at home. 02/01 13:15 Order name: CBC with Diff; Complete Time: 13:59 sb4 02/01 13:15 Order name: CMP; Complete Time: 14:16 sb4 02/01 13:15 Order name: Lipase; Complete Time: 14:16 sb4 02/01 13:15 Order name: Test, Serum; Complete Time: 14:46 sb4 02/01 13:15 Order name: UA Rfx Collin Cult if indicated; Complete Time: 14:04 sb4 02/01 13:15 Order name: CT Abd/Pelvis - IV Contrast Only; Complete Time: 17:15 sb4 02/01 13:15 Order name: IV Saline Lock; Complete Time: 13:54 sb4 02/01 13:15 Order name: Labs collected and sent; Complete Time: 13:54 sb4 02/01 17:15 Order name: PO challenge; Complete Time: 18:35 sb4 Administered Medications: 13:53 Drug: Ondansetron IVP 4 mg IVP once; over 2 minutes Route: IVP; Site: right antecubital;kj2 18:35 Follow up: Response: No adverse reaction kj2 13:53 Drug: NS 0.9% IV 1000 ml IV at 1 bolus Per protocol; to be given as a bolus over 60 kj2 minutes Route: IV; Rate: 1 bolus; Site: right antecubital; 18:35 Follow up: IV Status: Completed infusion; IV Intake: 1000ml kj2 13:54 Drug: TORadol - Ketorolac IVP 15 mg IVP once Route: IVP; Site: right antecubital; kj2 18:36 Follow up: Response: No adverse reaction kj2 17:34 Drug: Promethazine IVP 12.5 mg IVP once Route: IVP; Site: right antecubital; kj2 18:35 Follow up: Response: No adverse reaction kj2 Disposition Summary: 02/01/25 18:12 Discharge Ordered Notes: Location: Home sb4 Problem: new sb4 Symptoms: have improved sb4 Condition: Stable sb4 Diagnosis - Viral gastroenteritis sb4 Followup: sb4 - With: Emergency Department - When: As needed - Reason: Trouble breathing, Worsening of condition Discharge Instructions: - Discharge Summary Sheet sb4 - Viral Gastroenteritis, Adult, [id number] sb4 Forms: - Patient Portal Instructions sb4 - Leadership Thank You Letter sb4 Prescriptions: - ondansetron 8 mg Oral Tablet,disintegrating - take 1 tablet ORAL route every 8 hours; 10 tablet; Refills: 0, Product sb4 Selection Permitted Addendum: 02/03/2025 08:30 Co-signature as Attending Physician, Richar Blanco MD I reviewed the patient's care r t provided by the Advanced Practice Provider and agree with the diagnosis and treatment plan. Signatures: Dispatcher [employer] Jenny Kessler, THIENC PAButchC sb4 Richar Blanco MD MD rt Sobeida Vuong, RN RN me1 Taisha Montana RN RN kj2
[2025-02-01 19:40] VITALS: BP 121/78; TEMP 98; O2SAT 100
== END 2025-02-01 18:42 | disposition home or self-care (01) ==
LOC: ER 12:55
DX: A08.4 Viral intestinal infection, unspecified (principal)
CPT/HCPCS: 36415; 74177; 80053; 81001; 83690; 84703; 85025; 96361; 96374; 96375; 99284; J2405; J2550; J7030